=== PATIENT | male | born 1995 | race Caucasian/White ===

== ENCOUNTER 2018-02-22 20:14 | Emergency (ER) | payer MEDICAID, SELFPAY ==
[2018-02-22] VITALS (25 sets, daily range): BP systolic 90–150; BP diastolic 45–79; PULSE 66–99; RESP 12–22; TEMP 38.1; O2SAT 95–100
--- NOTE | 2018-02-22 20:37 | W.ED.GENAD ---
Discharge Plan Disposition Patient Disposition: HOME Condition: Improving Discharge Details Chief Complaint: Chest Pain Clinical Impression: Chest wall pain, Fever, Viral syndrome Primary Care Provider: Jami Damon ED Provider: Blanca Strange Home Meds and New Rx's Prescriptions: Continue sumatriptan succinate 50 mg tablet See Label Instructions PO .COMPLEX Qty: 10 RF: 12 dextroamphetamine-amphetamine [Adderall XR] 20 mg capsule,extended release 24hr 20 mg PO DAILY MDD 20 mg Qty: 28 RF: 0 ibuprofen 200 MG capsule 200 mg PO Q4H PRN RF: 0 Discharge Instructions Instructions: Viral Syndrome (ED), Chest Wall Pain (ED) Additional Instructions: Alternate Tylenol and Motrin as needed and directed for pain. Alternate ice and heat to the affected area several times daily for 20 minutes at a time. Follow-up with your primary care doctor in 1 week for reevaluation. Return immediately to the emergency department any worsening or new concerning symptoms. Discharge Data Discharge Physician: Blanca Strange Medical Decision Making 22-year-old male with a history of anxiety, ADHD, adjustment disorder and migraines who presents for approximately 10 episodes of chest pain occurring over the past year, 3 worsening episodes over the past month, including tonight. Admits to drinking 3-4 shots of alcohol this afternoon. Also admits to daily tobacco smoking and daily marijuana use. States he also drinks 2 cups of coffee daily. Patient denies any URI symptoms. He states the left chest is tender to touch. He states his job requires frequent heavy lifting, pushing and pulling in his exertional but he denies any known specific injury. Blood pressure mildly hypertensive, heart rate 80s-90s, temperature 100.6. Normal respirations oxygen saturation. He has significant left anterior chest tenderness to palpation. No evidence of infection or trauma. Lungs clear to auscultation. Abdomen soft nontender. No lower extremity edema. Differential diagnosis includes costochondritis, musculoskeletal chest wall strain, viral syndrome, anxiety, pneumonia. Normal ENT exam so doubt pharyngitis, otitis, mono. EKG notes a rate of 97, sinus, no acute ST elevation or depression, QTC 422, QRS 114. Will check labs including troponin, d-dimer, lipase and a chest x-ray and give a dose of Toradol IM. 2234 --labs and imaging reviewed. White blood cell count 14. Normal hemoglobin, d-dimer, troponin and lipase. Chest x-ray negative. No lab or EKG findings consistent with pericarditis or myocarditis. Patient states he feels much better and is requesting to go home. Recheck temperature afebrile. Discussed with patient that his symptoms could be due to chest wall pain, with an overlying viral syndrome. Discussed that this may be the beginning symptoms of something that is not evident at this time and if he has any worsening symptoms or new concerns, to return immediately to the emergency department. Patient is instructed to follow-up with his primary care doctor for reevaluation. Medical Records Medical records reviewed: Yes I reviewed the patient's medical records. Imaging Data Radiologic Study: Radiologist's impression: XR Chest, 2 Views EXAM DATE/TIME: FINDINGS: Lungs: Unremarkable. No consolidation. Pleural space: Unremarkable. No evidence of pneumothorax. Heart/Mediastinum: Unremarkable. Heart size within normal limits for technique. Bones/joints: Unremarkable. No evidence of acute fracture. IMPRESSION: No acute findings. Lab Data Lab results reviewed: Yes I reviewed the patient's lab results. Laboratory Tests Range/Units 02/22/18 02/22/18 02/22/18 21:03 21:03 21:03 WBC (4.4-10.8) k/cumm 14.27 H RBC (4.50-6.00) m/cumm 4.61 Hgb (13.5-17.5) g/dL 14.6 Hct (40.0-50.0) % 43.0 MCV (80-95) fL 93.3 MCH (27.0-33.0) pg 31.7 MCHC (32.0-36.0) g/dL 34.0 RDW (11.8-14.1) % 13.5 Plt Count (130-400) x1000/uL 189 MPV (8.0-11.0) fL 9.9 Immature Gran % 0.2 Neutrophils % 74.0 Lymphocytes % 15.6 Monocytes % 9.0 Eosinophils % 1.1 Basophils % 0.1 Absolute Neutrophils (1.2-6.7) k/cumm 10.56 H Absolute Lymphocytes (1.2-3.4) k/cumm 2.23 Absolute Monocytes (0.11-0.7) k/cumm 1.28 H Absolute Eosinophils (0.0-0.7) k/cumm 0.16 Absolute Basophils (0.0-0.2) k/cumm 0.01 D-Dimer (<500) ng/mlFEU 88 Sodium (136-145) mmol/L 139 Potassium (3.5-5.1) mmol/L 3.9 Chloride (98-107) mmol/L 101 Carbon Dioxide (21.0-32.0) mmol/L 29.2 Anion Gap (3-11) mmol/L 8.8 BUN (7-18) mg/dL 16 Creatinine (0.70-1.30) mg/dL 1.29 Estimated GFR/1.73 m2 (mL/min/1.73m2) >= 60.00 Glucose (70-100) mg/dL 102 H Calcium (8.5-10.1) mg/dL 9.0 Magnesium (1.8-2.4) mg/dL 1.9 Total Bilirubin (0.2-1.0) mg/dL 0.2 AST (15-37) U/L 11 L ALT (12-78) U/L 17 Alkaline Phosphatase (46-116) U/L 56 Troponin I (0.00-0.06) ng/mL < 0.02 Total Protein (6.4-8.2) g/dL 7.7 Albumin (3.4-5.0) g/dL 4.1 Lipase (73-393) U/L Range/Units 02/22/18 21:03 WBC (4.4-10.8) k/cumm RBC (4.50-6.00) m/cumm Hgb (13.5-17.5) g/dL Hct (40.0-50.0) % MCV (80-95) fL MCH (27.0-33.0) pg MCHC (32.0-36.0) g/dL RDW (11.8-14.1) % Plt Count (130-400) x1000/uL MPV (8.0-11.0) fL Immature Gran % Neutrophils % Lymphocytes % Monocytes % Eosinophils % Basophils % Absolute Neutrophils (1.2-6.7) k/cumm Absolute Lymphocytes (1.2-3.4) k/cumm Absolute Monocytes (0.11-0.7) k/cumm Absolute Eosinophils (0.0-0.7) k/cumm Absolute Basophils (0.0-0.2) k/cumm D-Dimer (<500) ng/mlFEU Sodium (136-145) mmol/L Potassium (3.5-5.1) mmol/L Chloride (98-107) mmol/L Carbon Dioxide (21.0-32.0) mmol/L Anion Gap (3-11) mmol/L BUN (7-18) mg/dL Creatinine (0.70-1.30) mg/dL Estimated GFR/1.73 m2 (mL/min/1.73m2) Glucose (70-100) mg/dL Calcium (8.5-10.1) mg/dL Magnesium (1.8-2.4) mg/dL Total Bilirubin (0.2-1.0) mg/dL AST (15-37) U/L ALT (12-78) U/L Alkaline Phosphatase (46-116) U/L Troponin I (0.00-0.06) ng/mL Total Protein (6.4-8.2) g/dL Albumin (3.4-5.0) g/dL Lipase (73-393) U/L 143 HPI General Mode of arrival: ambulatory. Date/Time Provider Initiated Documentation: 02/22/18 20:34. Limitations to Documentation: no limitations. Information obtained by: patient. HPI Narrative: Patient is a 22-year-old male with a history of migraines, anxiety, ADHD, and adjustment disorder who presents to the ED with a complaint of chest pain that started 1 hour ago. Patient states the pain is left-sided, sharp with occasional radiation to his left arm and up to his left neck. Patient denies any chest pain at present. He states the pain is worse with touch, but better with rubbing the area. Patient states when he feels that the pain comes on, he starts to worry, feels numbness across his chest and neck and feels blurry and checkered vision. Denies any shortness of breath, nausea, vomiting, dizziness, leg pain or swelling, recent travel, recent surgery. Patient states he has had similar episodes occurring approximately 10 times over the past year, with 3 of the worst episodes occurring in the last month, including tonight. Patient denies any ear pain, sore throat, rhinorrhea, cough, abdominal pain. Patient states he feels like anxiety may be contributing to his symptoms. He does also admit to smoking marijuana daily, cigarettes daily as well as occasional alcohol. Patient states he had 3-4 shots this afternoon of alcohol. Related Data Home Medications Medication Instructions Recorded Confirmed ibuprofen 200 mg PO Q4H PRN tab-cap 11/11/15 02/22/18 sumatriptan 50 mg tablet See Label Instructions PO .COMPLEX 01/13/18 02/22/18 #10 tab dextroamphetamine-amphetamine ER 20 mg PO DAILY #28 cap MDD 20 mg 02/14/18 02/22/18 20 mg 24hr capsule,extend release Previous Rx's Medication Instructions Recorded sumatriptan 50 mg tablet See Label Instructions PO .COMPLEX 01/13/18 #10 tab dextroamphetamine-amphetamine ER 20 mg PO DAILY #28 cap MDD 20 mg 02/14/18 20 mg 24hr capsule,extend release Allergies Allergy/AdvReac Type Severity Reaction Status Date / Time No Known Allergies Allergy Verified 02/14/18 10:21 General Stated Complaint: Chest Pain ANDREA: 3 Review of Systems Review of Systems All systems reviewed & are unremarkable except as noted in HPI and below Constitutional Reports as per HPI, Denies chills and Denies fever(s) Eyes Denies blurry vision ENT Denies dizziness, Denies sore throat and Denies throat swelling Cardiovascular Reports chest pain and Denies dyspnea Respiratory Denies dyspnea Gastrointestinal Denies abdominal pain, Denies diarrhea and Denies vomiting Genitourinary Denies hematuria and Denies dysuria Musculoskeletal Denies back pain and Denies numbness Integumentary/Breasts Denies lesions and Denies rash Neurologic Denies dizziness and Denies numbness Allergic/Immunologic Denies throat swelling PFSH Verruca vulgaris (Resolved 05/25/12) Attention deficit hyperactivity disorder (Chronic 08/11/11) Adjustment disorder with depressed mood (Resolved 12/02/15) Family History Mother Depression Father No problems noted. Laceration left lower arm (02/03/03) Open fx rgt humerus (03/19/12) fx Salter Hicks type II 2nd phalanx right (09/09/09) tuft Fx left index finger (02/11/09) Family History Mother Depression Father No problems noted. 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 Smoking/Tobacco Use Status: Current-Occasional tobacco type: cigarettes and e-cigarettes alcohol intake: current alcohol intake frequency: 0-2 drinks per day substance use type: marijuana seatbelt use: always drive intox or ride w/ intox [place] driver: No working smoke detector in home: Yes carbon monox detector in home: Yes Surgical History Laceration left lower arm (02/03/03) Open fx rgt humerus (03/19/12) fx Rober Hicks type II 2nd phalanx right (09/09/09) tuft Fx left index finger (02/11/09) Social History household members: friend(s) housing: apartment lives independently: Yes 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, 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 Smoking/Tobacco Use Status: Current-Occasional tobacco type: cigarettes and e-cigarettes alcohol intake: current alcohol intake frequency: 0-2 drinks per day substance use type: marijuana seatbelt use: always drive intox or ride w/ intox [place] driver: No working smoke detector in home: Yes carbon monox detector in home: Yes Exam Const General: cooperative, healthy appearing and no acute distress HENMT Head: normal to inspection Face and sinus: normal facial exam Eyes General: appearance normal, both eyes and all related structures Pupils: PERRL EOM: EOM intact bilaterally Neck Neck: normal visual inspection and No submandibular swelling Lymphatic: no lymphadenopathy noted Chest Chest: normal inspection of the chest and no tenderness Resp Effort & Inspection: normal respiratory effort and able to speak in complete sentences Auscultation: clear to auscultation bilaterally Cardio Rate: regular rate Rhythm: regular rhythm GI Inspection: normal to inspection Palpation: soft, not firm, not rigid and nontender Auscultation: normal bowel sounds Skin General skin exam: no rashes or lesions noted Neuro General: alert, awake and oriented x3 Cognition: normal cognition Speech: speech normal Motor: muscle tone normal throughout Sensory Exam: no sensory deficits noted Extrem General: normal to inspection, full ROM, normal capillary refill, no calf tenderness bilaterally and no edema Psych Appearance: grossly normal Mental Status: mental status grossly normal Speech and Movement: speech and movement normal Affect: normal affect Course Vital Signs Temperature 100.6 F H 02/22/18 20:18 Pulse 94 H 02/22/18 20:18 Respiratory Rate 16 02/22/18 20:18 Blood Pressure 146/79 H 02/22/18 20:18 Pulse Oximetry 100 02/22/18 20:18 Temperature 100.6 F H 02/22/18 20:18 Temperature Source Temporal Artery Scan 02/22/18 20:18 Pulse 94 H 02/22/18 20:18 Respiratory Rate 16 02/22/18 20:18 Respiratory Effort 02/22/18 20:26 Respiratory Depth Normal 02/22/18 20:26 Respiratory Pattern Normal 02/22/18 20:26 Blood Pressure 146/79 H 02/22/18 20:18 Blood Pressure Position Sitting 02/22/18 20:18 Pulse Oximetry 100 02/22/18 20:18 Oxygen Delivery Method Room Air 02/22/18 20:18 Oxygen Flow Rate 0 02/22/18 20:18 Pain Level 6 02/22/18 20:18
--- NOTE | 2018-02-22 21:00 | DI.RAD_ITS ---
SYMPTOMS/DIAGNOSIS: FEVER, CHEST PAIN, ? ACUTE DISEASE PA AND LATERAL CHEST: No priors. The heart is normal in size. The lungs are clear. The mediastinal structures and pleura appear intact. CONCLUSION: Normal chest.
[2018-02-22] MEDS: Ketorolac 60 MG/2 ML VIAL IM (21:08)
[2018-02-22 21:18] LABS: Abs Immature Grans 0.03 k/cumm (0.0-0.09); Absolute Lymphocyte Count 2.23 k/cumm (1.2-3.4); Basophils % 0.1; Eosinophils % 1.1; HGB 14.6 g/dL (13.5-17.5); Immature Grans % 0.2; Lymphocytes % 15.6; Mean Corpuscular Hemoglobin 31.7 pg (27.0-33.0); Mean Corpuscular Volume 93.3 fL (80-95); Mean Platelet Volume 9.9 fL (8.0-11.0); Platelet Count 189 x1000/uL (130-400); RBC 4.61 m/cumm (4.50-6.00); RBC Distribution Width 13.5 % (11.8-14.1); White Blood Cell Count 14.27 k/cumm (4.4-10.8)
[2018-02-22 21:19] LABS: Absolute Basophil Count 0.01 k/cumm (0.0-0.2); Absolute Eosinophil Count 0.16 k/cumm (0.0-0.7); Absolute Monocyte Count 1.28 k/cumm (0.11-0.7); Absolute Neutrophil Count 10.56 k/cumm (1.2-6.7)
[2018-02-22 21:32] LABS: Lipase 143 U/L (73-393)
[2018-02-22 21:39] LABS: ALT 17 U/L (12-78); AST 11 U/L (15-37); Albumin 4.1 g/dL (3.4-5.0); Alkaline Phosphatase 56 U/L (46-116); Anion Gap 8.8 mmol/L (3-11); BUN 16 mg/dL (7-18); Bilirubin, Total 0.2 mg/dL (0.2-1.0); CO2 29.2 mmol/L (21.0-32.0); CREATININE 1.29 mg/dL (0.70-1.30); Chloride 101 mmol/L (98-107); Glucose 102 mg/dL (70-100); Magnesium 1.9 mg/dL (1.8-2.4); Potassium 3.9 mmol/L (3.5-5.1); Sodium 139 mmol/L (136-145); Total Protein 7.7 g/dL (6.4-8.2)
[2018-02-22 21:41] LABS: Troponin I < 0.02 ng/mL (0.00-0.06)
[2018-02-22 22:07] LABS: D-Dimer 88 ng/mlFEU (<500)
--- NOTE | 2018-02-22 22:31 | DI.VRAD_ITS ---
EXAM: XR Chest, 2 Views EXAM DATE/TIME: 02/22/2018 9:02 PM CLINICAL HISTORY: 22 years old, male; Signs and symptoms; Other: Fever, chest pain, R/O acute disease TECHNIQUE: XR of the chest, 2 views. COMPARISON: No relevant prior studies available. FINDINGS: Lungs: Unremarkable. No consolidation. Pleural space: Unremarkable. No evidence of pneumothorax. Heart/Mediastinum: Unremarkable. Heart size within normal limits for technique. Bones/joints: Unremarkable. No evidence of acute fracture. IMPRESSION: No acute findings. Dictated and Authenticated by: Vidal Drake MD. Ordering:HORTENCIA LYNN MD
== END 2018-02-22 22:51 | disposition home or self-care (01) ==
PROVIDERS: Emergency Provider Physician Assistant; PCP Nurse Practitioner
DX: R07.89 Other chest pain (principal); R50.9 Fever, unspecified; B34.9 Viral infection, unspecified
CPT/HCPCS: 36415; 80053; 83690; 93005; 96372; 99284; 71046; 83735; 84484; 85025; 85379; 93010; 99285; J1885

== ENCOUNTER 2019-05-14 17:25 | Emergency (ER) | payer MEDICAID, SELFPAY ==
[2019-05-14 17:28] VITALS: BP 156/83; PULSE 103; TEMP 36.7; O2SAT 98
--- NOTE | 2019-05-14 17:34 | ED.GENADUL_ITS ---
Discharge Plan Disposition Patient Disposition: HOME Condition: Improving Discharge Details Chief Complaint: Laceration Clinical Impression: Laceration of hand, right Primary Care Provider: Yuri Chavez ED Provider: Rafael Abreu Home Meds and New Rx's Prescriptions: Continued dextroamphetamine-amphetamine [Adderall XR] 20 mg capsule,extended release 24hr 20 mg PO DAILY MDD 20 mg Qty: 28 RF: 0 dextroamphetamine-amphetamine [Adderall XR] 20 mg capsule,extended release 24hr 20 mg PO DAILY MDD 20 mg Qty: 28 RF: 0 sumatriptan succinate 50 mg tablet See Rx Instructions PO .COMPLEX Qty: 10 RF: 12 ibuprofen 200 MG capsule 200 mg PO Q4H PRN RF: 0 Discharge Instructions Instructions: Laceration (ED) Additional Instructions: Return for removal of sutures in 10 to 14 days time. Return sooner if you develop redness, foul-smelling discharge from the wound, fever, or any other acute concerns. May do gentle soap and water cleansing, pat dry once daily and replace Band-Aid. Continue your regular medications. Please call Dr. Dill office tomorrow morning to double check that your tetanus status is up to date. Medical Decision Making 23-year-old male cut his right hand when doing dishes evening. States that his tetanus was updated in the office in the last 6 months. He has normal sensory and motor testing. The wound was anesthetized, prepped, draped in the standard sterile fashion liberally irrigated, examined in a bloodless field without evidence of foreign body. The wound was closed with 8 interrupted 4-0 sutures. There was good wound edge apposition. I dressed the wound at the bedside. I discussed the patient home management as well as return indications. He stable, improved, appropriate for discharge to home at this time HPI General Mode of arrival: ambulatory . Date/Time Provider Initiated Documentation: 05/14/19 17:26 . Limitations to Documentation: no limitations . Information obtained by: patient . History of Present Illness 23 year old M presents to the emergency department with the chief complaint of Right hand laceration while washing dishes, no numbness, no weakness, described as moderate, Quality is described as dull and constant, and is localized to the right and upper extremity. Patient reports no radiation. Patient started experiencing this minute(s) and it has been constant. No relieving factors improve symptom(s), No exacerbating factors reported . Patient notes other (No weakness, no numbness, no tingling. Tetanus is up-to-date.). Patient did receive the following treatments prior to arrival, none Related Data Home Medications Medication Instructions Recorded Confirmed ibuprofen 200 mg PO Q4H PRN tab-cap 11/11/15 05/14/19 sumatriptan succinate 50 mg tablet See Rx Instructions PO .COMPLEX 01/13/18 05/14/19 #10 tab dextroamphetamine-amphetamine ER 20 mg PO DAILY #28 cap MDD 20 mg 05/12/19 05/12/19 20 mg 24hr capsule,extend release dextroamphetamine-amphetamine ER 20 mg PO DAILY #28 cap MDD 20 mg 05/12/19 05/14/19 20 mg 24hr capsule,extend release Previous Rx's Medication Instructions Recorded sumatriptan succinate 50 mg tablet See Rx Instructions PO .COMPLEX 01/13/18 #10 tab dextroamphetamine-amphetamine ER 20 mg PO DAILY #28 cap MDD 20 mg 05/12/19 20 mg 24hr capsule,extend release dextroamphetamine-amphetamine ER 20 mg PO DAILY #28 cap MDD 20 mg 05/12/19 20 mg 24hr capsule,extend release Allergies Allergy/AdvReac Type Severity Reaction Status Date / Time No Known Allergies Allergy Verified 05/14/19 17:31 General Stated Complaint: Laceration ANDREA: 3 Review of Systems Narrative: 6 systems reviewed and otherwise negative [facility] Medical History Adjustment disorder with depressed mood (Resolved 12/02/15) Attention deficit hyperactivity disorder (Chronic 08/11/11) Tonsillith (Acute) Verruca vulgaris (Resolved 05/25/12) Surgical History fx Salter Hicks type II 2nd phalanx right (09/09/09) Laceration left lower arm (02/03/03) Open fx rgt humerus (03/19/12) tuft Fx left index finger (02/11/09) Social History Smoking/Tobacco Use Status: Current-Occasional Tobacco Type: e-cigarettes Alcohol Intake: current Alcohol Intake frequency: 0-2 drinks per day Drug use: Occasionally Substance use type: marijuana Household members: friend(s) Housing: apartment 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 What type of physical activity do you participate in: regular exercise Seatbelt use: always Drive intox or ride w/intox driver courier: No Working smoke detector in home: Yes Carbon monox detector in home: Yes Do you feel safe at home: Yes Do you feel safe in your relationship?: Yes Exam Narrative Exam Narrative: GEN: awake, alert, oriented 3. Pleasant, well groomed, interactive. HEAD: Normocephalic, atraumatic ENT: Mucous membranes moist, oropharynx unremarkable, External ear exam unremarkable EXT: Full ROM, right hand with curvilinear laceration overlying the right distal first metacarpal. Distal sensation and motor function is within normal limits. No foreign body seen Neuro: Grossly normal neurologic exam, conversant, interactive. Psych: Speech fluent, thoughts congruent, affect normal Course Vital Signs Vital signs: Vital Signs Temperature 36.7 C 05/14/19 17:28 Pulse 103 H 05/14/19 17:28 Blood Pressure 156/83 H 05/14/19 17:28 Pulse Oximetry 98 05/14/19 17:28 Temperature 36.7 C 05/14/19 17:28 Temperature Source Temporal Artery Scan 05/14/19 17:28 Pulse 103 H 05/14/19 17:28 Respiratory Effort Non-Labored 05/14/19 17:33 Blood Pressure 156/83 H 05/14/19 17:28 Blood Pressure Position Sitting 05/14/19 17:28 Pulse Oximetry 98 05/14/19 17:28 Oxygen Delivery Method Room Air 05/14/19 17:28 Oxygen Flow Rate 0 05/14/19 17:28 Pain Level 0 05/14/19 17:28 Procedures Laceration Laceration 1: Site: hand Side (If applicable): right Size (cm): 5 Description: linear Depth: simple, single layer Local Anesthetic: Lidocaine 1% Amount of anesthesia used (mL): 2 Pre-repair: wound explored, irrigated extensively and deep structures intact Skin layer closed with: nylon Size (cm): 4-0 Number of sutures: 8
[2019-05-14 17:59] VITALS: BP 156/83; PULSE 103; TEMP 36.7; O2SAT 98
== END 2019-05-14 17:57 | disposition home or self-care (01) ==
PROVIDERS: Emergency Provider Emergency Medicine; PCP Family Medicine
DX: S61.411A Laceration without foreign body of right hand, initial encounter (principal); W25.XXXA Contact with sharp glass, initial encounter; Y93.G1 Activity, food preparation and clean up
CPT/HCPCS: 12002

== ENCOUNTER 2019-08-05 05:51 | Emergency (ER) | payer MEDICAID, SELFPAY ==
[2019-08-05 05:57] VITALS: BP 142/77; PULSE 90; RESP 18; TEMP 36.6; O2SAT 99
--- NOTE | 2019-08-05 06:10 | ED.GENADUL_ITS ---
Discharge Plan Disposition Patient Disposition: HOME Condition: Good Discharge Details Chief Complaint: DentalOral Clinical Impression: Pain, dental Primary Care Provider: Yuri Chavez ED Provider: Garett Acosta Home Meds and New Rx's Prescriptions: New amoxicillin 500 mg capsule 500 mg PO QID 7 Days Qty: 28 RF: 0 Continued sumatriptan succinate 50 mg tablet See Rx Instructions PO .COMPLEX Qty: 10 RF: 12 dextroamphetamine-amphetamine [Adderall XR] 20 mg capsule,extended release 24hr 20 mg PO DAILY MDD 20 mg Qty: 28 RF: 0 ibuprofen 200 MG capsule 200 mg PO Q4H PRN RF: 0 Discharge Instructions Instructions: Toothache (ED) Additional Instructions: Please take the antibiotic as directed. Please take 800 mg of ibuprofen every 6 hours and 1000 mg of Tylenol every 6 hours to help the pain. Continue icing as needed. Follow-up closely with your dentist at your scheduled appointment. If you notice any worsening of your symptoms, or any new symptoms such as vomiting, diarrhea, fever, chills, shortness of breath, chest pain, numbness, weakness, or fainting , please return immediately to the emergency department for reevaluation. As always, it was a pleasure participating in your medical care today. Referrals: Yuri Chavez DO [Primary Care Provider] - Medical Decision Making Pleasant 23-year-old male presents with right-sided upper dental pain for the last 3 days, he does have a dental appointment this week, he states that the pain has become too unbearable. Is been taking Tylenol Motrin leftover penicillin to no avail for pain. Exam demonstrates mild dental caries in the right upper molars, no periapical or dental abscesses appreciable. Dental block was performed in the right upper molars and the patient had complete resolution of his pain note this. With no other concerning abnormalities, stable vital signs, and otherwise unremarkable exam patient will be discharged home with close dental follow-up. We will give a prescription for amoxicillin, discussed red flags for which to return. I have extensively reviewed the treatment plan and discharge instructions with the patient. I have addressed all patient concerns at this time. The patient was made aware of what symptoms to monitor for that would warrant a return to the emergency department. Discussed the plan with the patient, they demonstrate verbal understanding and agreement with our assessment and plan at this time. HPI General Date/Time Provider Initiated Documentation: 08/05/19 05:57 . HPI Narrative: 23-year-old male with a past medical history of dental caries presents today for dental pain. Patient states that for the last 2 to 3 days he has had notable right-sided upper and lower tooth pain. It started with his old fractured tooth on the top right, is now radiated down to the bottom right. He has been taking Tylenol, Motrin and some leftover penicillin and this has not been helping his symptoms. He denies any fever chills headache or neck pain. He does have an appointment with his dentist this week. He has no other complai nts at this time. No cough, no vomiting, no diarrhea, no difficulty swallowing, or other complaints. Related Data Home Medications Medication Instructions Recorded Confirmed ibuprofen 200 mg PO Q4H PRN tab-cap 11/11/15 08/05/19 sumatriptan succinate 50 mg tablet See Rx Instructions PO .COMPLEX 01/13/18 07/11/19 #10 tab dextroamphetamine-amphetamine ER 20 mg PO DAILY #28 cap MDD 20 mg 07/11/19 08/05/19 20 mg 24hr capsule,extend release amoxicillin 500 mg PO QID 7 Days #28 cap 08/05/19 Previous Rx's Medication Instructions Recorded sumatriptan succinate 50 mg tablet See Rx Instructions PO .COMPLEX 01/13/18 #10 tab dextroamphetamine-amphetamine ER 20 mg PO DAILY #28 cap MDD 20 mg 07/11/19 20 mg 24hr capsule,extend release amoxicillin 500 mg PO QID 7 Days #28 cap 08/05/19 Allergies Allergy/AdvReac Type Severity Reaction Status Date / Time No Known Allergies Allergy Verified 08/05/19 06:01 General Stated Complaint: DentalOral ANDREA: 4 Review of Systems All systems reviewed & are unremarkable except as noted in HPI and below PFSH Surgical History fx Salter Hicks type II 2nd phalanx right (09/09/09) Laceration left lower arm (02/03/03) Open fx rgt humerus (03/19/12) tuft Fx left index finger (02/11/09) Social History Smoking/Tobacco Use Status: Current-Occasional Tobacco Type: e-cigarettes Alcohol Intake: current Alcohol Intake frequency: a few times a week Drug use: Occasionally Substance use type: marijuana Household members: friend(s) Housing: apartment 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 3.ENT: Atraumatic external nose and ears. Moist MM. Neck: Symmetric, trachea midline, No thyromegaly. Mild dental caries specifically in the top right molars. No evidence of abscess, no fluctuance. No significant redness. 4.CVS: +S1/S2, No murmurs or gallops. Peripheral pulses 2+ and equal in all extremities. Brisk capillary refill in all extremities. 5.RESP: Unlabored respiratory effort. Clear to auscultation bilaterally. No wheezes rales or rhonchi 6.GI: Soft, Nontender/Nondistended, No hepatosplenomegaly. No guarding or rebound. 7.MSK: Normocephalic/Atraumatic, Extremities w/o deformity or ttp No cyanosis or clubbing, Normal movement of all extremities 8.Skin: Warm, Dry. No rashes or lesions. 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 Sensation grossly intact, no focal neurologic deficits. 10.Psych: (AAO) x3. Appropriate mood and affect Course Vital Signs Vital signs: Vital Signs Temperature 36.6 C 08/05/19 05:57 Pulse 90 08/05/19 05:57 Respiratory Rate 18 08/05/19 05:57 Blood Pressure 142/77 H 08/05/19 05:57 Pulse Oximetry 99 08/05/19 05:57 Temperature 36.6 C 08/05/19 05:57 Temperature Source Skin 08/05/19 05:57 Pulse 90 08/05/19 05:57 Respiratory Rate 18 08/05/19 05:57 Respiratory Effort Non-Labored 08/05/19 06:03 Blood Pressure 142/77 H 08/05/19 05:57 Pulse Oximetry 99 08/05/19 05:57 Pain Level 10 08/05/19 06:03 Procedures Other Description: Time out was taken to identify the correct patient, procedure, and site. Risks and benefits were discussed with the patient and consent was obtained. Direct pressure was held over the area prior to the procedure to red uce painful injection. 5 cc?s of Lidocaine 1% and Bupivacaine 0.25% was instilled into the right superior posterior space with a 27 gauge needle.Complete analgesia was obtained. The patient tolerated the procedure. There were no complications.
== END 2019-08-05 06:25 | disposition home or self-care (01) ==
LOC: ER 06:27
PROVIDERS: Emergency Provider Student in an Organized Health Care Education/Training Program; PCP Family Medicine
DX: R68.84 Jaw pain (principal)
CPT/HCPCS: 64450

== ENCOUNTER 2019-08-07 18:20 | Emergency (ER) | payer MEDICAID, SELFPAY ==
[2019-08-07 18:20] VITALS: BP 156/82; PULSE 99; RESP 14; TEMP 36.8; O2SAT 96
--- NOTE | 2019-08-07 18:22 | W.ED.GENAD ---
Discharge Plan Disposition Patient Disposition: HOME Condition: Stable Discharge Details Chief Complaint: DentalOral Clinical Impression: Pain, dental Primary Care Provider: Yuri Chavez ED Provider: Catherine Alvarez Home Meds and New Rx's Prescriptions: Continued sumatriptan succinate 50 mg tablet See Rx Instructions PO .COMPLEX Qty: 10 RF: 12 dextroamphetamine-amphetamine [Adderall XR] 20 mg capsule,extended release 24hr 20 mg PO DAILY MDD 20 mg Qty: 28 RF: 0 ibuprofen 200 MG capsule 200 mg PO Q4H PRN RF: 0 amoxicillin 500 mg capsule 500 mg PO QID 7 Days Qty: 28 RF: 0 Discharge Instructions Instructions: Toothache (ED) Additional Instructions: Continue amoxicillin previously prescribed. Elevate head when trying to sleep as discussed. Ice packs to cheek for discomfort. Warm salt water rinses if needed. Rest activities as tolerated. Consider Benadryl 25 to 50 mg this evening to help assist in sleep. Do not consume alcohol or any impairing medications as you received a injection of narcotic pain medicine since this evening. Do not attempt to operate machines or drive. You will experience drowsiness. Follow-up promptly with dentist. If unable to get into your dentist consider calling [phone] Return for worsening, concerns or alarming symptoms sooner if needed as discussed Discharge Data Discharge Date/Time-TO BE ENTERED AT DEPARTURE: 08/07/19 19:25 Medical Decision Making <Melvina Jacobs MD - Last Filed: 08/10/19 07:30> I, Melvina Jacobs, performed a history and exam of this patient and discussed the case with the PA. I reviewed this individual's note and I concur with the documented findings and plan of care except as documented differently. ROS as per PA chart. Mr. Holder is a 23 y/o man who presented to the emergency with dental pain. Upper right rear molar with decayed. Mild erythema of the surrounding gingiva without abscess. No facial edema. Pt is well and non-toxic apearing. Exam/hx not c/w dental abscess, facial abscess, sepsis, ludwigs angina, impending airway compromise. Plan for IM dilaudid, d/c to home, continue abx, outpt f/u with dental. Pt placed on care management list for outpt dental f/u. I had a lengthy discussion with Patient regarding return to emergency department precautions, home care, and importance of outpatient follow-up. Pt verbalizes understanding of the plan and is amenable. Patient discharged to home with clear plan for outpatient follow-up. All questions were answered. Disposition decision was made weighing the risks and benefits of hospitalization versus outpatient treatment, the risk for further decompensation, and the patient's wishes. Medical Records Medical records reviewed: Yes I reviewed the patient's medical records. <ALEXANDER Case - Last Filed: 08/07/19 19:14> Is a 23-year-old patient presenting to the ER this evening for complaints of persistent dental pain. Please see HPI for specific details of his complaints this evening. Patient was seen twice prior for complaints of dental pain 2 days ago. Patient is compliant with amoxicillin previously prescribed. Has been prescribed well pain medication without significant relief of his symptoms. Patient does have a plan to see dentist on Wednesday however has had difficulty sleeping due to persistence of pain. Patient presents with a obvious dental carry in the right upper posterior molar which does appear somewhat inflamed without focal abscess however there is a wound at the gumline either secondary to recent dental block or previously local dental infection. Patient has difficulty tolerating pain. Trial of viscous lidocaine in the emergency room without significant relief of his symptoms. Will provide a single injection of Dilaudid 2 mg IM for pain management this evening and patient will attempt to see his dentist tomorrow. Patient agrees with this plan of care. Conservative treatments also discussed. Patient has no evidence of systemic infection. Patient has no trismus. Patient is able to eat and drink. Precautions discussed. The patient was stable and requested discharge. Prior to discharge, my usual and customary return precautions were reviewed with the patient - this included follow-up instructions and reasons to return to the Emergency Department if conditions worsens, does not improve as expected, or other new concerns arise. HPI <Melvina Jacobs MD - Last Filed: 08/10/19 07:30> General Date/Time Provider Initiated Documentation: 08/07/19 18:22. Related Data Home Medications Medication Instructions Recorded Confirmed ibuprofen 200 mg PO Q4H PRN tab-cap 11/11/15 08/07/19 sumatriptan succinate 50 mg tablet See Rx Instructions PO .COMPLEX 01/13/18 08/07/19 #10 tab dextroamphetamine-amphetamine ER 20 mg PO DAILY #28 cap MDD 20 mg 07/11/19 08/07/19 20 mg 24hr capsule,extend release amoxicillin 500 mg PO QID 7 Days #28 cap 08/05/19 08/07/19 Previous Rx's Medication Instructions Recorded sumatriptan succinate 50 mg tablet See Rx Instructions PO .COMPLEX 01/13/18 #10 tab dextroamphetamine-amphetamine ER 20 mg PO DAILY #28 cap MDD 20 mg 07/11/19 20 mg 24hr capsule,extend release amoxicillin 500 mg PO QID 7 Days #28 cap 08/05/19 Allergies Allergy/AdvReac Type Severity Reaction Status Date / Time No Known Allergies Allergy Verified 08/07/19 18:33 <ALEXANDER Case - Last Filed: 08/07/19 19:14> HPI Narrative: This is a 23-year-old patient presenting to the emergency room he reports he was seen twice here 2 days ago. Patient reports he was initially seen he was prescribed amoxicillin he did receive a dental block for dental pain which is been bothersome for approximately 4 days. Patient reports approximately 30 minutes after he left the pain was significantly worse and he returned at that time he was reevaluated and prescribed oral pain medication. Patient reports he has been compliant with pain medication but has received no relief. Patient reports he is compliant with amoxicillin prescribed. Patient reports that he has been unable to sleep in several days and is struggling to tolerate pain. Patient reports significant upper dental pain. Very transient relief when rinsing with cool water. Patient denies any trismus, sore throat or voice change. Denies significant swelling of the cheek. Patient denies headache. Denies any fevers or chills. Does report occasional dizziness but has been taking pain medication for the last 2 days. Otherwise denies systemic symptoms of illness. Patient does have an appointment with his dentist on Wednesday he is going to call tomorrow to try to expedite evaluation tomorrow. Patient is requesting a dose of pain medication to try to get some sleep this evening until trying to see dentist tomorrow. Patient denies any other concerns or complaints. No recent cough, difficulty breathing shortness of breath or wheezing. Denies nausea, vomiting. No abdominal complaints. Patient is able to eat and drink with some difficulty. General ANDREA: 4 <ALEXANDER Case - Last Filed: 08/07/19 19:14> All systems reviewed & are unremarkable except as noted in HPI and below PFSH <Melvina Jacobs MD - Last Filed: 08/10/19 07:30> Medical History Adjustment disorder with depressed mood (Resolved 12/02/15) Attention deficit hyperactivity disorder (Chronic 08/11/11) Tonsillith (Acute) Verruca vulgaris (Resolved 05/25/12) Surgical History fx Salter Hicks type II 2nd phalanx right (09/09/09) Laceration left lower arm (02/03/03) Open fx rgt humerus (03/19/12) tuft Fx left index finger (02/11/09) Social History Smoking/Tobacco Use Status: Current-Occasional Tobacco Type: e-cigarettes Alcohol Intake: current Alcohol Intake frequency: a few times a week Drug use: Occasionally Substance use type: marijuana Household members: friend(s) Housing: apartment 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 Well hydrated. Alert and oriented. HENMT: Head nomocephalic, normal to inspection. Atraumatic. Hearing grossly normal. External ear canal no erythema or swelling. TM normal bilaterally. Nose normal to inspection. No rhinnorhea. Normal facial exam. Oral mucosa normal. Tounge normal. Dentition with a moderate dental carry noted at the right upper posterior molar. Small wound noted at the gumline. No obvious abscess at this time. Normal posterior oropharynx. Uvula midline. EYES: General normal appearance. Alignment normal. Eyelids normal. Conjunctiva normal. Sclera normal. PERRL. NECK: Normal visual inspection. FROM. Cervical lymphadenopathy. Trachea midline. No Midline tenderness. CHEST: Normal insepection of the chest. MUSCULOSKELETAL: Normal Gait. FROM of all extremities. SKIN: Normal. Dry. No rashes. NEURO: Alert and awake. Speech clear. PSYCH: Normal affect. Cooperative.
--- NOTE | 2019-08-07 18:46 | NUR.NOTE ---
Nursing Note: copy to cm in box for referal dolores to dentist
[2019-08-07] MEDS: Lidocaine 2% Viscous 15 ML CUP PO (18:51)
--- NOTE | 2019-08-07 18:59 | NUR.NOTE ---
viscous lidocaine swish and spit unsuccessful in relieving pain.:
[2019-08-07] MEDS: HYDROmorphone 2 MG/ML VIAL IM (19:14)
== END 2019-08-07 19:25 | disposition home or self-care (01) ==
PROVIDERS: Emergency Provider Physician Assistant; PCP Family Medicine
DX: R68.84 Jaw pain (principal)
CPT/HCPCS: 96372; 99284; 99283

== ENCOUNTER 2019-09-26 12:35 | Emergency (ER) | payer MEDICAID, SELFPAY ==
[2019-09-26 12:39] VITALS: BP 134/76; PULSE 96; RESP 18; TEMP 36.7; O2SAT 97
--- NOTE | 2019-09-26 13:09 | W.ED.GENAD ---
Discharge Plan Disposition Patient Disposition: HOME Condition: Stable Discharge Details Chief Complaint: Orthopedic Clinical Impression: Lumbar back pain Primary Care Provider: Yuri Chavez ED Provider: Charles Keys Home Meds and New Rx's Prescriptions: New naproxen [Naprosyn] 500 mg tablet 500 mg PO BID PRNQty: 14 RF: 0 Continued dextroamphetamine-amphetamine [Adderall XR] 20 mg capsule,extended release 24hr 20 mg PO DAILY MDD 20 mg Qty: 28 RF: 0 dextroamphetamine-amphetamine [Adderall XR] 20 mg capsule,extended release 24hr 20 mg PO DAILY MDD 20 mg Qty: 28 RF: 0 dextroamphetamine-amphetamine [Adderall XR] 20 mg capsule,extended release 24hr 20 mg PO DAILY MDD 20 mg Qty: 28 RF: 0 sumatriptan succinate 50 mg tablet See Rx Instructions PO .COMPLEX Qty: 10 RF: 12 ibuprofen 200 MG capsule 200 mg PO Q4H PRN RF: 0 Discharge Instructions Instructions: Low Back Strain (ED) Additional Instructions: Naprosyn as directed. Gentle stretches as tolerated. Cool and/or warm compresses every 2 hours for 20 minutes. Please watch for new or worsening symptoms and return to the ER for any concerns. I do recommend reaching out to your primary care provider later today or tomorrow for prompt outpatient reevaluation. Outpatient physical therapy and/or MRI may be indicated. Medical Decision Making 24-year-old gentleman who injured his right lower back yesterday while lifting weight. He appears well, no acute distress. He is neurologically intact. Likely soft tissue musculoskeletal in nature. We discussed our options. X-ray was offered but declined as patient does not believe he has a broken back. He has no midline tenderness, I believe this to be perfectly reasonable. Patient is agreeable to receiving 60 IM Toradol and he will use an [id number] back brace. We discussed the importance of outpatient follow-up through his primary care provider, potential outpatient physical therapy, and or MRI if indicated. Patient reports that he plans to visit with a chiropractor as an outpatient and if he is not doing any better he will talk with his primary care provider regarding muscle relaxers. Medical Records Medical records reviewed: Yes I reviewed the patient's medical records. HPI General Mode of arrival: ambulatory. Date/Time Provider Initiated Documentation: 09/26/19 12:47. Limitations to Documentation: no limitations. Information obtained by: patient. HPI Narrative: This is a 24-year-old gentleman he reports that he was doing front squats yesterday and injured his right lower back. He reports the pain is moderate at rest, worse with engaging his core. He is tried [id number] medication, cool compresses and heat with only minimal relief. He is concerned that he may have pinched a nerve. He denies history of back issues. Patient denies any other injury. He denies abdominal pain, change in bowel or bladder function, incontinence, pain radiating down either leg, or any numbness, tingling, or weakness whatsoever. Patient reports that he tried to contact his primary care office but they had a long wait. Patient wonders if a back brace may be beneficial. Related Data Home Medications Medication Instructions Recorded Confirmed ibuprofen 200 mg PO Q4H PRN tab-cap 11/11/15 09/05/19 sumatriptan succinate 50 mg tablet See Rx Instructions PO .COMPLEX 01/13/18 09/05/19 #10 tab dextroamphetamine-amphetamine ER 20 mg PO DAILY #28 cap MDD 20 mg 09/05/19 09/05/19 20 mg 24hr capsule,extend release dextroamphetamine-amphetamine ER 20 mg PO DAILY #28 cap MDD 20 mg 09/05/19 09/05/19 20 mg 24hr capsule,extend release dextroamphetamine-amphetamine ER 20 mg PO DAILY #28 cap MDD 20 mg 09/05/19 09/05/19 20 mg 24hr capsule,extend release naproxen [Naprosyn] 500 mg PO BID PRN #14 tab 09/26/19 Previous Rx's Medication Instructions Recorded sumatriptan succinate 50 mg tablet See Rx Instructions PO .COMPLEX 01/13/18 #10 tab dextroamphetamine-amphetamine ER 20 mg PO DAILY #28 cap MDD 20 mg 09/05/19 20 mg 24hr capsule,extend release dextroamphetamine-amphetamine ER 20 mg PO DAILY #28 cap MDD 20 mg 09/05/19 20 mg 24hr capsule,extend release dextroamphetamine-amphetamine ER 20 mg PO DAILY #28 cap MDD 20 mg 09/05/19 20 mg 24hr capsule,extend release naproxen [Naprosyn] 500 mg PO BID PRN #14 tab 09/26/19 Allergies Allergy/AdvReac Type Severity Reaction Status Date / Time No Known Allergies Allergy Verified 09/26/19 12:43 General Stated Complaint: Orthopedic ANDREA: 4 Review of Systems Constitutional Constitutional: Denies fever(s) and Denies weakness Cardiovascular Cardiovascular: Denies chest pain and Denies dyspnea Respiratory Respiratory: Denies cough and Denies dyspnea Gastrointestinal Gastrointestinal: Denies abdominal pain, Denies change in bowel habits, Denies fecal incontinence, Denies nausea and Denies vomiting Genitourinary Genitourinary: Denies difficulty urinating, Denies urinary hesitancy and Denies urinary incontinence Musculoskeletal Musculoskeletal: Reports back pain, Denies numbness and Denies tingling Integumentary/Breasts Skin/Breast: Denies rash Neurologic Neurologic: Denies numbness, Denies radicular pain, Denies tingling and Denies weakness [facility] Medical History Adjustment disorder with depressed mood (Resolved 12/02/15) Attention deficit hyperactivity disorder (Chronic 08/11/11) Tonsillith (Acute) Verruca vulgaris (Resolved 05/25/12) Surgical History fx Salter Hicks type II 2nd phalanx right (09/09/09) Laceration left lower arm (02/03/03) Open fx rgt humerus (03/19/12) tuft Fx left index finger (02/11/09) Family History Mother Depression Father No problems noted. 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 What type of physical activity do you participate in: regular exercise Seatbelt use: always Drive intox or ride w/intox hog driver: No Working smoke detector in home: Yes Carbon monox detector in home: Yes Do you feel safe at home: Yes Do you feel safe in your relationship?: Yes Exam Const General: cooperative, healthy appearing, comfortable and no acute distress Orientation: alert, awake and oriented x3 [facility]: normal to inspection, normocephalic and atraumatic Mouth: moist mucous membranes Eyes Conjunctivae: conjunctivae normal Neck Neck: normal visual inspection, full ROM, trachea midline and supple Resp Effort & Inspection: normal respiratory effort and able to speak in complete sentences Cardio Rate: regular rate Rhythm: regular rhythm GI Palpation: soft and nontender Back/Spine/Pelvis Back: no CVA tenderness and back tenderness (Diffuse mild right-sided discomfort) Thoracic/Lumbar Spine: thoracic and lumbar spine normal to inspection, thoraco-lumbar ROM normal, paraspinal tenderness (Right sided), No thoraco-lumbar spasm and straight leg raise positive (Right leg 5 degrees, left leg 15 degrees) Skin General skin exam: no rashes or lesions noted Neuro General: patient alert, patient awake, moves all extremities and no focal motor deficits Gait: normal gait Motor: muscle tone normal throughout and strength 5/5 throughout Sensory Exam: no sensory deficits noted Extrem General: normal to inspection, full ROM, capillary refill normal, no pedal edema and no calf tenderness Psych Appearance: grossly normal Mental Status: mental status grossly normal Course Vital Signs Vital signs: Vital Signs Temperature 36.7 C 09/26/19 12:39 Pulse 96 H 09/26/19 12:39 Respiratory Rate 18 09/26/19 12:39 Blood Pressure 134/76 09/26/19 12:39 Pulse Oximetry 97 09/26/19 12:39 Temperature 36.7 C 09/26/19 12:39 Temperature Source Skin 09/26/19 12:39 Pulse 96 H 09/26/19 12:39 Respiratory Rate 18 09/26/19 12:39 Respiratory Effort Non-Labored 09/26/19 12:43 Blood Pressure 134/76 09/26/19 12:39 Blood Pressure Position Sitting 09/26/19 12:39 Pulse Oximetry 97 09/26/19 12:39 Oxygen Delivery Method Room Air 09/26/19 12:39 Oxygen Flow Rate 0 09/26/19 12:39 Pain Level 7 09/26/19 12:39
[2019-09-26] MEDS: Ketorolac 60 MG/2 ML VIAL IM (13:10)
== END 2019-09-26 13:25 | disposition home or self-care (01) ==
PROVIDERS: Emergency Provider Physician Assistant; PCP Family Medicine
DX: M54.5 Low back pain (principal)
CPT/HCPCS: 96372; 99284; 99283; J1885

== ENCOUNTER 2020-02-25 09:28 | Emergency (ER) | payer MEDICAID, SELFPAY ==
[2020-02-25 09:36] VITALS: BP 142/79; PULSE 64; RESP 17; TEMP 36.4; O2SAT 100
--- NOTE | 2020-02-25 10:12 | ED.GENADUL_ITS ---
Discharge Plan Disposition Patient Disposition: HOME Condition: Stable Discharge Details Clinical Impression: Radial nerve irritation Primary Care Provider: Yuri Chavez ED Provider: Torsten Jacobs Home Meds and New Rx's Prescriptions: Continued sumatriptan succinate 50 mg tablet See Rx Instructions PO .COMPLEX Qty: 10 RF: 12 dextroamphetamine-amphetamine [Adderall XR] 20 mg capsule,extended release 24hr 20 mg PO DAILY MDD 20 mg Qty: 28 RF: 0 ibuprofen 200 MG capsule 600 mg PO Q4H PRN RF: 0 Discharge Instructions Additional Instructions: No weight lifting or heavy lifting until symptoms completely resolved and cleared to return by your doctor. If nerve pain in your hand persist tomorrow, or worsens, please follow-up with orthopedics for additional diagnostic testing. Please contact your primary care physician to arrange follow-up. Return to the ER for any worsening or new concerning symptoms. Referrals: [facility] [Provider Group] Yuri Chavez DO [Primary Care Provider] - Medical Decision Making 24-year-old male here with right upper extremity pain in the radial nerve distribution with some paresthesia and no weakness or paralysis. Patient does note some intermittent symptoms also involving the left arm in similar radial nerve distribution. I suspect he has radial nerve irritation secondary to excessive weight lifting but given bilateral distribution, consider cervical lesion. Patient has no neck pain or tenderness and has full range of motion. Plan will be to provide anti-inflammatory Toradol IM and continue with ibuprofen. Advised him to stop weight lifting and monitor symptoms closely. He was instructed to call orthopedics tomorrow if symptoms are persisting for potential additional diagnostic testing including MRI which is not currently available and to return to the emergency department for any worsening or new concerning symptoms. Patient verbalized understanding of plan. HPI General Mode of arrival: ambulatory . Date/Time Provider Initiated Documentation: 02/25/20 10:11 . Limitations to Documentation: no limitations . Information obtained by: patient . HPI Narrative: 24-year-old male presents with chief complaint of right hand pain. Patient notes pain started 4 days ago and has persisted. Pain is intermittent since onset. Pain is localized to his right first through third digits and radiates up. Lateral forearm to posterior lateral upper arm. Pain feels like a fullness that he has associated diminished sensation in the tip of his thumb. He also notes that sometimes the pain radiates to his left hand and arm in the same distribution. He denies associated neck pain. He denies any specific trauma. No headache. Patient notes he has been doing heavy weightlifting at the gym and in fact had a workout on Wednesday prior to onset of symptoms and also had additional workout with squats on Wednesday. Related Data Home Medications Medication Instructions Recorded Confirmed ibuprofen 600 mg PO Q4H PRN tab-cap 11/11/15 02/25/20 sumatriptan succinate 50 mg tablet See Rx Instructions PO .COMPLEX 01/13/18 02/25/20 #10 tab dextroamphetamine-amphetamine ER 20 mg PO DAILY #28 cap MDD 20 mg 02/20/20 02/25/20 20 mg 24hr capsule,extend release Previous Rx's Medication Instructions Recorded sumatriptan succinate 50 mg tablet See Rx Instructions PO .COMPLEX 01/13/18 #10 tab dextroamphetamine-amphetamine ER 20 mg PO DAILY #28 cap MDD 20 mg 02/20/20 20 mg 24hr capsule,extend release Allergies Allergy/AdvReac Type Severity Reaction Status Date / Time No Known Allergies Allergy Verified 02/20/20 09:23 General Stated Complaint: Orthopedic ANDREA: 4 Review of Systems Constitutional Constitutional: Denies fever(s) Cardiovascular Cardiovascular: Denies chest pain Musculoskeletal Musculoskeletal: Reports as per HPI and Denies joint swelling Integumentary/Breasts Skin/Breast: Denies rash Neurologic Neurologic: Reports as per HPI and Denies localized weakness PFSH Medical History Adjustment disorder with depressed mood (12/02/15) Attention deficit hyperactivity disorder (08/11/11) Insomnia Tonsillith Verruca vulgaris (05/25/12) Surgical History fx Salter Hicks type II 2nd phalanx right (09/09/09) Laceration left lower arm (02/03/03) Open fx rgt humerus (03/19/12) tuft Fx left index finger (02/11/09) Family History Mother Depression Father No problems noted. 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 [employer] What type of physical activity do you participate in: regular exercise Seatbelt use: always Drive intox or ride w/intox fork truck driver: No Working smoke detector in home: Yes Carbon monox detector in home: Yes Do you feel safe at home: Yes Do you feel safe in your relationship?: Yes Exam Const General: cooperative and no acute distress HENMT Head: normocephalic Mouth: moist mucous membranes Neck Neck: trachea midline and supple Resp Auscultation: clear to auscultation bilaterally, no rales, no rhonchi and no wheezes Cardio Rate: regular rate and not tachycardic Rhythm: regular rhythm Pulses: radial pulses present bilaterally 2+ Skin General skin exam: no rashes or lesions noted Neuro General: patient alert, patient awake, patient oriented x3 and tone normal Cognition: normal cognition Motor: strength 5/5 throughout (Bilateral upper extremities) Sensory Exam: upper extremity right light-touch abnormal (Diminished right hand radial nerve distribution) and other (Normal sensation over lateral upper arm) Extrem General: no edema Right upper extremity: full ROM and hand Details: normal capillary refill, neuromotor exam normal and neurosensory exam abnormal Left upper extremity: full ROM and hand Details: normal capillary refill, neuromotor exam normal and neurosensory exam abnormal Details: radial nerve sensory function abnormal (Sensation intact but distal thumb with paresthesia); no unusual warmth and no swelling Psych Appearance: grossly normal Mental Status: mental status grossly normal Course Vital Signs Vital signs: Vital Signs Temperature 36.4 C L 02/25/20 09:36 Pulse 64 02/25/20 09:36 Respiratory Rate 17 02/25/20 09:36 Blood Pressure 142/79 H 02/25/20 09:36 Pulse Oximetry 100 02/25/20 09:36 Temperature 36.4 C L 02/25/20 09:36 Temperature Source Temporal Artery Scan 02/25/20 09:36 Pulse 64 02/25/20 09:36 Respiratory Rate 17 02/25/20 09:36 Respiratory Effort 02/25/20 09:41 Blood Pressure 142/79 H 02/25/20 09:36 Blood Pressure Position Sitting 02/25/20 09:36 Pulse Oximetry 100 02/25/20 09:36 Oxygen Delivery Method Room Air 02/25/20 09:36 Oxygen Flow Rate 0 02/25/20 09:36 Pain Level 0 02/25/20 09:36
[2020-02-25] MEDS: Ketorolac 30 MG/ML VIAL IM (10:18)
== END 2020-02-25 10:21 | disposition home or self-care (01) ==
PROVIDERS: Emergency Provider Student in an Organized Health Care Education/Training Program; PCP Family Medicine
DX: G56.33 Lesion of radial nerve, bilateral upper limbs (principal); R20.2 Paresthesia of skin; X50.0XXA Overexertion from strenuous movement or load, initial encounter; Y93.B3 Activity, free weights
CPT/HCPCS: 96372; 99284; 99283; J1885

== ENCOUNTER 2020-07-08 15:11 | Outpatient (CLI) | payer MEDICAID, SELFPAY ==
--- NOTE | 2020-07-08 14:45 | DI.RAD_ITS ---
EXAM: XR SHOULDER RT COMPLETE 2+V CLINICAL HISTORY: pain in shoulder. TECHNIQUE: 2D digital imaging was performed. COMPARISON: CR RIGHT SHOULDER COMPLETE from 03/19/2012 FINDINGS: There is no evidence fracture nor dislocation or abnormal soft tissue calcifications. No degenerativ e changes evident in the glenohumeral and AC joints. Coracoid process appears unremarkable. Bone de nsity is normal. No osseous lesions. IMPRESSION: DATA REPOSITORY: RADIATION DOSE DELIVERED:
--- NOTE | 2020-07-08 14:45 | DI.RAD_ITS ---
EXAM: XR CERVICAL SPINE 1V CLINICAL HISTORY: neck pain. TECHNIQUE: 2D digital imaging was performed. COMPARISON: No exams were available for comparison FINDINGS: Limited two view study reveals no evidence fracture, listhesis, nor offset the spinal laminar line. All the disc spaces exhibit height. No cervical ribs. Some degenerative changes are noted at the fa cet joints at C7-T1 level. There is no prevertebral soft tissue swelling. No osseous lesions seen. IMPRESSION: DATA REPOSITORY: RADIATION DOSE DELIVERED:
== END 2020-07-08 15:12 | disposition home or self-care (01) ==
LOC: DIORS 15:11
PROVIDERS: PCP Family Medicine; Referring Provider Family Medicine; Visit Provider Physician Assistant Surgical
DX: M25.511 Pain in right shoulder (principal); M54.2 Cervicalgia; M47.813 Spondylosis without myelopathy or radiculopathy, cervicothoracic region
CPT/HCPCS: 72020; 73030

== ENCOUNTER 2020-09-03 09:14 | Outpatient (CLI) | payer MEDICAID, SELFPAY ==
--- NOTE | 2020-09-03 09:00 | RT.EKG_ITS ---
APPROVED REPORT Exam: Resting ECG Reason for Exam: [id number] Patient Location: O HR:79 bpm ECG Measurements Heart Rate 79 AXIS LA 158 P 32 QRSd 116 QRS 65 QT 358 T 40 QTc 412 Conclusion Sinus rhythm...normal P axis, V-rate 60- 99 Incomplete right bundle branch block...QRSd >112, terminal axis(90,270)
== END 2020-09-03 09:15 | disposition home or self-care (01) ==
LOC: DI.KIM 09:15
PROVIDERS: PCP Family Medicine; Visit Provider Family Medicine
DX: Z79.899 Other long term (current) drug therapy (principal)
CPT/HCPCS: 93010

== ENCOUNTER 2021-02-13 01:34 | Outpatient (CLI) | payer MEDICAID, SELFPAY ==
--- NOTE | 2021-02-13 07:30 | DI.MRI_ITS ---
Exam(s) MR BRAIN WO EXAM: MR BRAIN WO CLINICAL HISTORY: blackouts,dizzy,vision changes,g44.009,headache TECHNIQUE: Multiplanar multisequence MRI of the brain was performed. COMPARISON: MR MR CERVICAL SPINE WO from 02/13/2021 FINDINGS: CEREBRAL PARENCHYMA: There is no evidence of intracranial hemorrhage, mass effect, or shift of midline structures. There are no extra-axial fluid collections. Ventricles are not enlarged or shifted. There is no significant focal signal abnormality in the cerebellar hemispheres nor within the kati, m idbrain, and thalami. There is no abnormal signal abnormality in the periventricular white matter. There is no significant focal signal abnormality evident on diffusion imaging to suggest acute ischem ic event. PITUITARY GLAND: No mass nor parasellar abnormality. No obvious abnormality in the cavernous sinuses. FLOW VOIDS: The expected flow void are noted. No evidence of obvious aneurysm nor obvious vascular ma lformation. PARANASAL SINUSES: Mild circumferential from the Kozel thickening sphenoid sinuses, not associated wi th fluid levels therein. Frontal and maxillary sinuses are clear. ORBITS: No obvious findings. IMPRESSION: No significant intracranial findings on this noninfused MRI scan of the brain. Mild mucosal thickening in the sphenoid sinuses. DATA REPOSITORY:
--- NOTE | 2021-02-13 07:30 | DI.MRI_ITS ---
Exam(s) MR CERVICAL SPINE WO EXAM: MR CERVICAL SPINE WO CLINICAL HISTORY: neck pain, black outs, dizziness, vision changes,cervical spondylosis,m47.8 TECHNIQUE: Multiplanar multisequence MRI of the cervical spine was performed without intravenous con trast. COMPARISON: No exams were available for comparison FINDINGS: CERVICOMEDULLARY JUNCTION: Intact with no evidence of cerebellar tonsillar ectopia. No obvious abnor mality of the odontoid process. No evidence of Chiari 1 malformation. CERVICAL SPINAL CORD: There is no abnormal signal in the cervical spinal cord and no evidence of foca l cord atrophy nor focal cord swelling. OSSEOUS:There are no cervical fractures evident. No significant osseous lesions in the cervical vert ebrae. INDIVIDUAL LEVELS: C2-3: No disc herniation nor central canal stenosis. No foraminal stenosis. No facet arthropathy. C3-4: No disc herniation nor central canal stenosis.No facet arthropathy. No foraminal stenosis. C4-5: No disc herniation nor central canal stenosis.No facet arthropathy. No foraminal stenosis C5-6: Normal disc height and signal. No significant disc herniation. No central canal stenosis. No facet arthropathy. No foraminal stenosis. C6-7: Normal disc height and signal. No significant disc herniation. No central nor foraminal steno sis. No facet arthropathy. C7-T1: No disc herniation nor central canal stenosis. No facet arthropathy.No foraminal stenosis. IMPRESSION: 1. No significant findings on this MRI scan of cervical spine. No evidence of disc herniation, spina l canal stenosis, nor foraminal stenosis. 2. No evidence in the demyelinating plaques in the cervical cord and no evidence of focal cord signal abnormality nor focal cord atrophy nor focal cord swelling. 3. No significant osseous findings and the cervical curvature is well maintained. DATA REPOSITORY:
== END 2021-02-13 01:54 ==
PROVIDERS: PCP Family Medicine; Visit Provider Nurse Practitioner
DX: G44.009 Cluster headache syndrome, unspecified, not intractable (principal); H54.7 Unspecified visual loss; M47.812 Spondylosis without myelopathy or radiculopathy, cervical region; R42 Dizziness and giddiness
CPT/HCPCS: 70551; 72141

== ENCOUNTER 2022-07-07 15:27 | Outpatient (CLI) | payer MEDICAID, SELFPAY ==
--- NOTE | 2022-07-07 15:15 | RT.EKG_ITS ---
APPROVED REPORT Exam: Resting ECG Reason for Exam: Medication management while taking stimulant Patient Location: O HR:89 bpm ECG Measurements Heart Rate 89 AXIS MT 160 P 72 QRSd 116 QRS 68 QT 353 T 47 QTc 430 Conclusion Sinus rhythm...normal P axis, V-rate 50- 99 Incomplete right bundle branch block...QRSd >112, terminal axis(90,270) ST elev, probable normal early repol pattern...ST elevation, age<55
== END 2022-07-07 15:28 | disposition home or self-care (01) ==
LOC: DI.KIM 15:31
PROVIDERS: PCP Family Medicine; Visit Provider Family Medicine
DX: Z79.899 Other long term (current) drug therapy (principal)
CPT/HCPCS: 93010

== ENCOUNTER 2022-07-16 14:23 | Outpatient (CLI) | payer MEDICAID, SELFPAY ==
--- NOTE | 2022-07-16 10:47 | DI.RAD_ITS ---
Exam(s) XR LUMBAR SPINE COMPLETE EXAM: XR LUMBAR SPINE COMPLETE CLINICAL HISTORY: LOW BACK PAIN, M54.50. TECHNIQUE: 2D digital imaging was performed of the lumbar spine. Five images were obtained. AP, la teral, right oblique, left oblique and L5-S1 spot views were obtained. COMPARISON: No exams were available for comparison FINDINGS: BONES: No fracture or destructive lesion. Vertebral bodies are unremarkable. No facet hypertrophy radha ntified. DISKS: Intervertebral disc spaces are maintained. ALIGNMENT: Lumbar spinal alignment is within normal limits. No spondylolysis or spondylolisthesis. SOFT TISSUE: Normal. IMPRESSION: Unremarkable radiographs of the lumbar spine. DATA REPOSITORY: RADIATION DOSE DELIVERED:
== END 2022-07-16 14:43 ==
LOC: DI 14:23
PROVIDERS: PCP Family Medicine; Visit Provider Physician Assistant Medical
DX: M54.50 Low back pain, unspecified (principal)
CPT/HCPCS: 72110

== ENCOUNTER 2022-09-29 16:26 | Outpatient (REF) | payer MEDICAID, SELFPAY ==
[2022-10-01 13:27] LABS: Chlamydia Result Negative (Negative); GC Result Negative (Negative)
== END 2022-09-29 16:27 | disposition home or self-care (01) ==
LOC: LBN 16:26
PROVIDERS: PCP Family Medicine; Visit Provider Family Medicine
DX: N50.812 Left testicular pain (principal)
CPT/HCPCS: 87491; 87591